=== PATIENT | female | born 1965 | race Two or more races ===

== ENCOUNTER 2018-08-28 11:48 | Emergency (ER) | payer OTHER ==
[~2018-08-28] VITALS: Ht 144.8 cm; Wt 58.1 kg
--- NOTE | 2018-08-28 12:01 | NUR ---
ED Nurse Note: pt walked in c/o left side pain, pt states she works at [employer] and tripped over the cord and accidentally fall, pt states she has left hip pain radiating to left knee, no obvious deformity/contusion/openwound noted, pt hx sciatica, will cont monitor.
[2018-08-28 12:03] VITALS: BP 134/81
[2018-08-28] MEDS ORDERED: traMADol 50mg tab ORAL ONE (12:15)
--- NOTE | 2018-08-28 12:15 | Emergency Room Report ---
History of Present Illness General Chief Complaint: Multiple Trauma/Fall Source: Patient (Konstantin Chaudhari) Present Illness HPI 53-year-old female patient presents the ER status post mechanical trip and fall while at work earlier today. Reports injury occurred less than 3 hours prior to arrival to ER. States that her foot got "tangled up in a cord" and she fell onto her left hip. Reports pain with ambulation however able to ambulate unassisted . States the pain radiates from her hip down to her knee and to her buttock. Denies bowel or bladder incontinence. Denies hitting her head or loss consciousness. Denies vomiting or vision changes. Reports took Motrin after injury occurred. Denies other aggravating or relieving factors. Denies chest pain or shortness of breath. Reports history of sciatica. Denies . (Konstantin Chaudhari) Allergies: Coded Allergies: No Known Allergies (Unverified , 08/28/18) Patient History Past Medical History: see triage record Last Menstrual Period: N/A Now: No : 1 Para: 1 Reviewed Nursing Documentation: PMH: Agreed; PSxH: Agreed (Konstantin Chaudhari) Nursing Documentation-PMH Hx Cardiac Problems: No - Sciatica pain (Konstantin Chaudhari) Review of Systems All Other Systems: negative except mentioned in HPI (Konstantin Chaudhari) Physical Exam Vital Signs Date Time Temp Pulse Resp B/P (MAP) Pulse Ox O2 Delivery O2 Flow Rate FiO2 08/28/18 11:54 98.8 77 18 134/81 97 Room Air Sp02 EP Interpretation: reviewed, normal General Appearance: well appearing, no apparent distress, alert, GCS 15, non- toxic Head: normocephalic, atraumatic Eyes: bilateral eye normal inspection, bilateral eye PERRL ENT: hearing grossly normal, normal pharynx, no angioedema, normal voice, uvula midline, moist mucus membranes Neck: full range of motion, no bony tend Respiratory: lungs clear, normal breath sounds, no rhonchi, no respiratory distress, no accessory muscle use, no wheezing, speaking full sentences Cardiovascular #1: regular rate, rhythm, no edema Gastrointestinal: non tender, soft, no mass, non-distended, no guarding, no rebound Musculoskeletal: back normal - No bony step-off, digits/nails normal, gait/ station normal, normal range of motion, no calf tenderness, other - no leg length discrepancy, no ecchymosis, no erythema, no laxity with varus or valgus stress of knee, tender - Left hip and buttock Neurologic: alert, oriented x3, responsive, motor strength/tone normal, sensory intact Skin: no rash (Konstantin Chaudhari) Medical Decision Making PA Attestation Dr. Love is my supervising Physician whom patient management has been discussed with. (Konstantin Chaudhari) Diagnostic Impression: Primary Impression: Fall Additional Impression: Contusion of hip ER Course Pt. presents to the ED c/o left hip pain s/p mechanical trip and fall. Denies head trauma. Ddx considered but are not limited to fracture, sprain, strain, contusion, dislocation. No erythema, no warmth to touch, no fever, nontoxic appearing, low suspicion for septic joint. Soft compartments, no pulselessness, no pallor, no paresthesias, low suspicion for compartment syndrome at this time. Vital signs: are WNL, pt. is afebrile Ordered X-ray and pain medication. ER COURSE Provided with pain medication and lidocaine patch. Patch in ER with , will not be driving home. An X-ray of the hip shows negative for acute fracture or dislocation. An X-ray of the pelvis shows negative for acute disease. Discuss results with the patient. Provided patient with copy of results. Instructed patient to followup with PCP and discuss results of report with patient, discuss need for further treatment and referral. Workmen's Compensation paperwork completed, patient states that she is able to return to normal work, patient states she does not want to return to modified work. Patient instructed on RICE method: rest, ice, compression, elevation. Patient instructed on rest, ice and heat. Patient instructed to be WBAT Contact information for orthopedic urgent care provided, follow-up with urgent care if unable to followup with primary care provider and get referral to addiction specialist. Followup with primary care provider. Discuss referral to ortho/pain management/ PT as needed. Discuss further imaging with MRI/CT as needed. Discharge care of patient who will drive her home. Follow-up with Workmen's Comp. physician. ER precautions given. DISCHARGE: At this time pt. is stable for d/c to home. Patient is resting comfortably, in no acute distress, nontoxic appearing, talking without difficulty. Will provide printed patient care instructions, and any necessary prescriptions. Patient instructed to follow with primary care provider in 3 - 5 days and to request further follow-up as needed. Care plan and follow up instructions have been discussed with the patient prior to discharge. Take medications as directed. Patient questions asked and answered. Patient reports understanding and agreement to treatment plan. ER precautions given, patient instructed to return to ER immediately for any new or worsening of symptoms. - Please note that this Emergency Department Report was dictated using [employer] advisor technology software, occasionally this can lead to erroneous entry secondary to interpretation by the dictation equipment. (Konstantin Chaudhari) Other X-Ray Diagnostic Results Other X-Ray Diagnostic Results #1: X-Ray ordered: pelvis # of Views/Limited Vs Complete: 1 View Indication: Pain EP Interpretation: Yes PA Xray: Interpretation reviewed, by supervising MD, and agrees with findings. Interpretation: no dislocation, no soft tissue swelling, no fractures Impression: No acute disease PA Scribe Text Bertin Chaudhari PA-C Other X-Ray Diagnostic Results #2: X-Ray ordered: left hip # of Views/Limited Vs Complete: 2 View Indication: Pain EP Interpretation: Yes PA Xray: Interpretation reviewed, by supervising MD, and agrees with findings. Interpretation: no dislocation, no soft tissue swelling, no fractures Impression: No acute disease PA Scribe Text Bertin Chaudhari PA-C (Konstantin Chaudhari) Other X-Ray Diagnostic Results #1: Electronically Signed by: P A documentation of Xray reviewed by me and is accurate, German Love MD Other X-Ray Diagnostic Results #2: Electronically Signed by: P A documentation of Xray reviewed by me and is accurate, German Love MD (German Love MD) Last Vital Signs Date Time Temp Pulse Resp B/P (MAP) Pulse Ox O2 Delivery O2 Flow Rate FiO2 08/28/18 12:03 77 18 Room Air 08/28/18 12:03 98.8 134/81 97 Status: improved (Konstantin Chaudhari) Disposition: HOME, SELF-CARE Condition: Stable Scripts Ibuprofen* (MOTRIN*) 600 Mg Tablet 600 MG ORAL Q8H PRN for For Pain, #30 TAB 0 Refills Prov: Konstantin Chaudhari 08/28/18 Lidocaine (Lidocaine) 1 Each Adh..patch 5 % TP DAILY for 7 Days, #7 PATCH Prov: Konstantin Chaudhari 08/28/18 Patient Instructions: Hip Pain Additional Instructions: Patient instructed to follow up with primary care provider 3-5 and discuss further referral and imaging at that time. Patient instructed on rest, ice and heat. Do not take muscle relaxant prior to drinking, driving, or operating heavy machinery. Take medications as directed. Patient questions asked and answered. ER precautions given, patient instructed to return to ER immediately for any new or worsening of symptoms. [facility] [address] [facility] [facility], [address] [email or web address] Konstantin Chaudhari Aug 28, 2018 12:15 German Love MD Aug 28, 2018 21:46
--- NOTE | 2018-08-28 13:11 | NUR ---
Benji bruce in EDM - 08/28/18 at 1311 by [facility] ED Nurse Note: PT STATES SHE IS UNABLE TO PROVIDE URINE SAMPLE. PT REFUSES STRAIGHT CATHETER.
--- NOTE | 2018-08-28 13:18 | Diagnostic Imaging Report ---
LEFT HIP, Views INDICATION: Pain COMPARISON: None FINDINGS: 2 views of the left hip are obtained. Bony structures are intact. Bone mineralization is within normal limits. No hip dislocation. Joint spaces are preserved. Soft tissues are within normal limits. IMPRESSION: No acute fracture or dislocation identified.
--- NOTE | 2018-08-28 13:23 | Diagnostic Imaging Report ---
INDICATION: Pain COMPARISON: None FINDINGS: . No fractures or dislocations are seen about the hips. Limited visualization of the sacrum due to bowel. Bone mineralization and joint spaces are preserved. IMPRESSION: No fracture or subluxation.
[2018-08-28] MEDS ORDERED: IBUPROFEN600 MG ORAL (13:33)
[2018-08-28] MEDS ORDERED: LIDOCAINE700 M1 TP (13:33)
[2018-08-28 13:38] VITALS: BP 128/76
--- NOTE | 2018-08-28 13:38 | NUR ---
ED Nurse Note: PT SITTING PEACEFULLY IN BED IN NAD. AOX4. PRESCRIPTIONS AND DISCHARGE PAPERWORK EXPLAINED TO PT. PT VERBALIZES UNDERSTANDING AND ALL QUESTIONS ANSWERED. PRESCRIPTIONS AND DISCHARGE PAPERWORK GIVEN TO PT AND ID WRISTBAND REMOVED. PT WALKED OUT OF ER WITH STEADY GAIT AND ALL BELONGINGS.
== END 2018-08-28 13:41 | disposition home or self-care (01) ==
LOC: EMR 13:03
DX: S70.02XA Contusion of left hip, initial encounter (principal); W01.0XXA Fall on same level from slipping, tripping and stumbling without subsequent striking against object, initial encounter; Y92.9 Unspecified place or not applicable; Y99.0 Civilian activity done for income or pay
CPT/HCPCS: 72170; 73502; 99284